=== PATIENT | female | born 1965 | race Caucasian/White ===

== ENCOUNTER 2022-12-14 06:15 | Day surgery (SDC) | payer OTHER, SELFPAY ==
[2022-12-14] VITALS (14 sets, daily range): BP systolic 113–141; BP diastolic 72–100; PULSE 48–60; RESP 14–16; TEMP 36.4–36.8; O2SAT 98–100; BMI 17.9
[2022-12-14] MEDS: LACTATED RINGERS 1000 ML 1,000 ML 100 ML IV (07:05)
[2022-12-14] MEDS: SODIUM CHLORIDE 0.9 % (FLUSH) 10 ML SYRINGE IVF (07:06)
--- NOTE | 2022-12-14 07:25 | PM.GSPRC ---
Operative Note Pre-op diagnosis: 1. Symptomatic external and internal hemorrhoid. Post-op diagnosis: Same Type of Procedure: 1. One quadrant external and internal hemorrhoidectomy. Indications: 56 y.o. female was seen in clinic for evaluation of hemorrhoids and occasional pain around her anus. She complained of constantly present protruding tissue outside of her anus. She occasionally noticed bright blood on her underwear and that happened 1?2 times per week. She was having trouble keeping herself clean after bowel movements due to excessive tissue around her anus. Her bowel movements were daily. She denied any straining. She has a lot of fiber in her diet and drank a lot of water. on clinical exam patient had a redundant edematous external hemorrhoid in continuation with internal hemorrhoid right anterior laterally. The anoderm overlying this internal hemorrhoid was minimally ulcerated. Patient also had hemorrhoidal skin tags on the right and left posterior laterally that were minimally enlarged. Given patient's symptoms and her difficulties with cleaning her perianal skin, a 1 quadrant hemorrhoidectomy was recommended. The procedure was discussed in detail. The risks associated procedure including infection, bleeding, temporary incontinence, and the need for additional procedures were all discussed with the patient, and she agreed to proceed. ? Procedure Description: After discussing the risks and benefits of the procedure, the patient signed informed consent.? The operative site was marked and the patient was brought to the operating room. Patient was intubated by Anesthesia. Patient was then placed prone on the operating table with all pressure points padded.? The operative site was then prepped and draped in the usual sterile fashion.? A time-out was then performed. External examination, digital rectal examination, and anoscopic examination were all done and revealed significantly redundant internal and external hemorrhoidal tissue right anterior laterally. There was minimally enlarged internal and external hemorrhoidal tissue right and left posterior. I proceeded with 1 quadrant internal and external hemorrhoidectomy right anterior laterally. An elliptical incision was made with a needle tip electrocautery from the anoderm up into the anal canal just above the dentate line. Careful dissection of the hemorrhoid complex was done in the plane between the internal anal sphincter and the submucosal vascular plexus up to just above the dentate line in each quadrant described above. Having established the proper plane, the hemorrhoidal tissue was then excised with the Ligasure device and sent to Pathology for analysis. Care was taken to preserve mucosa for a tension-free closure. The internal sphincter fibers were visualized at the base of the wound and were intact. The deep anal mucosa was closed with a running locking 3-0 Vicryl suture. The remainder of the incision was then closed in a running locked manner with 3-0 chromic suture, coming out to the anoderm and then running back up in a simple fashion and tying down at the apex. Hemostasis was excellent. A mixture of Exparel and Marcaine was injected for bilateral pudendal nerve block. Sterile dressings were then applied Externally over the anus. ? The patient was then woken and transported to the recovery area in stable condition. ? The patient tolerated the procedure well. Findings: moderately enlarged external and internal hemorrhoid right anterior laterally. Anesthesia: GETA Surgeon: Cabrera Miranda MD Estimated blood loss (mL): 2 Additional Specimen Information: 1. Hemorrhoid. Condition: stable Disposition: PACU Date of procedure: 12/14/22
[2022-12-14] MEDS: BUPIVACAINE 0.25% 30 ML INJECTION (07:50)
[2022-12-14] MEDS: BUPIVACAINE LIPOSOME 133 MG/10 ML INJ INFILTRATI (07:50)
--- NOTE | 2022-12-14 08:26 | W.ANESCHARGE ---
Anesthesia Charges Start Date/Time Anesthesia Start Date: 12/14/22 Anesthesia Start Time: 07:24 Stop Date/Time Anesthesia Stop Date: 12/14/22 Anesthesia Stop Time: 08:22
[2022-12-14] MEDS: HYDROCODONE-ACETAMIN 5-325 MG 1 TAB PO (09:12)
== END 2022-12-14 10:56 | disposition home or self-care (01) ==
PROVIDERS: PCP Family Medicine; Visit Provider Surgery
PROC: (CPT 46255; principal; 2022-12-14 07:30)
DX: K64.8 Other hemorrhoids (principal); K64.4 Residual hemorrhoidal skin tags; K62.89 Other specified diseases of anus and rectum
CPT/HCPCS: 46255; 00902; 88304; A9270; C9290; J0330; J0665; J1100; J1200; J2250; J2405; J2704; J3010; J3490; J7120